=== PATIENT | male | born 1995 | race Caucasian/White ===

== ENCOUNTER 2024-05-10 06:54 | Day surgery (SDC) | payer OTHER ==
[~2024-05-10] VITALS: Ht 162.6 cm; Wt 63.5 kg
[2024-05-10] MEDS ORDERED: BENZOCAINE 20% 0.5mL UD SPRAY MM ONE (07:48)
[2024-05-10] MEDS ORDERED: MEPERIDINE 100 MG INJ. 100 MG/ML VIAL ONE ×2 (07:48→08:52)
[2024-05-10] MEDS ORDERED: SIMETHICONE 40 MG/0.6 ML ML ONE (07:48)
[2024-05-10] MEDS ORDERED: MIDAZOLAM HCL 5 MG/5 ML VIAL ONE ×2 (07:49→08:41)
[2024-05-10] MEDS ORDERED: DIPHENHYDRAMINE INJ 50 MG/ML VIAL ONE (08:41)
[2024-05-10] MEDS ORDERED: ONDANSETRON HCL 4 MG/2 ML VIAL ONE (08:54)
[2024-05-10 14:36] VITALS: O2SAT 100
[2024-05-10 17:02] VITALS: BP_SYST 107; PULSE 80; RESP 15
== END 2024-05-10 10:00 | disposition home or self-care (01) ==
LOC: SGI 06:54 → SMU 06:58 → SGI 10:00
PROVIDERS: ATTEND Internal Medicine
DX: K92.1 Melena (principal); K29.30 Chronic superficial gastritis without bleeding; K63.89 Other specified diseases of intestine; K59.00 Constipation, unspecified; R10.12 Left upper quadrant pain; K44.9 Diaphragmatic hernia without obstruction or gangrene; K64.8 Other hemorrhoids; K21.9 Gastro-esophageal reflux disease without esophagitis; Z79.899 Other long term (current) drug therapy
CPT/HCPCS: 45380; 43239; 88305; 88312; 88313; 99152; 99153; G0378; J1200; J2250; J2405; J2175